=== PATIENT | male | born 1965 | race Caucasian/White ===

== ENCOUNTER → 2023-05-13 07:46 | Outpatient (CLI) | payer OTHER, MEDICAID, SELFPAY ==
--- NOTE | 2023-05-13 07:49 | DI.NM.S_ITS ---
PROCEDURE: NM EXERCISE TREADMILL NON NUC COMPARISON: None. INDICATIONS: Chest pain, unspecified. FINDINGS: Rest ECG sinus rhythm, PVCs. Malvin protocol 7:03, maximum heart rate 124 bpm (78% peak predicted), maximum blood pressure 178/102, 8.0 METS, ANABEL +16%. Exercise ECG sinus tachycardia, no ST's segment changes or arrhythmias. IMPRESSION: Inconclusive study due to inability to achieve target heart rate. No evidence of inducible ischemia at the level of exercise achieved. Frequent PVCs noted. Baseline hypertension with otherwise normal hemodynamic response. Reduced exercise capacity. Dictated by: Danyell Castellon D.O. on 05/13/2023 at 16:47 Approved by: Danyell Castellon D.O. on 05/13/2023 at 16:52
== END ==
LOC: RAD 07:48
PROVIDERS: Referring Provider Student in an Organized Health Care Education/Training Program; Visit Provider Student in an Organized Health Care Education/Training Program
DX: I25.10 Atherosclerotic heart disease of native coronary artery without angina pectoris (principal); I25.83 Coronary atherosclerosis due to lipid rich plaque; R07.9 Chest pain, unspecified
CPT/HCPCS: 93017